=== PATIENT | male | born 1990 | race Two or more races ===

== ENCOUNTER 2025-04-17 08:28 | Emergency (ER) | payer OTHER ==
[~2025-04-17] VITALS: Ht 172.7 cm; Wt 77.3 kg
[2025-04-17] MEDS: ONDANSETRON 4MG/2ML VIAL IV ONE (09:33)
[2025-04-17] MEDS ORDERED: ISOVUE-370 76% 100 ML VIAL As Ordered ONE (10:16)
[2025-04-17] MEDS: PERCOCET 5MG/325MG TAB PO ONE (13:27)
[2025-04-17] MEDS: LORazepam 1 MG TAB PO ONE (13:34)
[2025-04-17] MEDS ORDERED: PROHANCE 279.3MG/ML 15ML VIAL As Ordered ONE (14:36)
[2025-04-17] MEDS ORDERED: HOME MED LIST COMPLETE! XX SCH (15:05)
[2025-04-17] MEDS ORDERED: OXYC1TAB23 PO (16:33)
[2025-04-17 16:57] VITALS: BP 117/57; TEMP 98.6; O2SAT 99
== END 2025-04-17 17:01 | disposition home or self-care (01) ==
LOC: M ED 08:28 → EDBD 08:28 → M ED 17:01
DX: S42.112A Displaced fracture of body of scapula, left shoulder, initial encounter for closed fracture (principal); W19.XXXA Unspecified fall, initial encounter; Y92.89 Other specified places as the place of occurrence of the external cause; Y93.39 Activity, other involving climbing, rappelling and jumping off; Y99.1 Military activity; D32.9 Benign neoplasm of meninges, unspecified
CPT/HCPCS: 70450; 70544; 70553; 71260; 72125; 80047; 96374; 96375; 96376; 99285; A9576; J2405; J3010; Q9967

== ENCOUNTER 2025-04-19 17:49 | Emergency (ER) | payer OTHER ==
[~2025-04-19] VITALS: Ht 172.7 cm; Wt 77.8 kg
[~2025-04-19 17:49] MED LIST: OXYC1TAB23 PO
[2025-04-19 18:46] LABS: PLATELET COUNT, AUTOMATED 411 10^3/uL (150-450)
[2025-04-19] MEDS: MORPHINE 4 MG/ML 1 ML VIAL IV ONE (19:00)
[2025-04-19] MEDS: ONDANSETRON 4MG/2ML VIAL IV ONE (19:00)
[2025-04-19 19:11] LABS: CALCIUM LEVEL 9.5 MG/DL (8.5-10.1); CARBON DIOXIDE LEVEL 27 MMOL/L (20-31); CHLORIDE LEVEL 99 MMOL/L (98-107); CREATININE FOR GFR 1.03 MG/DL (0.70-1.30); GLOMERULAR FILTRATION RATE > 90.0 (>60); POTASSIUM SERUM 4.1 MMOL/L (3.5-5.1); SODIUM LEVEL 138 MMOL/L (136-145)
[2025-04-19] MEDS: KETOROLAC 30 MG/ML 1 ML VIAL IV ONE (19:36)
[2025-04-19 20:06] VITALS: BP 123/79; TEMP 99.5; O2SAT 96
== END 2025-04-19 20:16 | disposition home or self-care (01) ==
LOC: EDBD 17:49 → M ED 17:49 → CANBEDREQ 19:02 → M ED 20:16
DX: S42.022S Displaced fracture of shaft of left clavicle, sequela (principal); W19.XXXA Unspecified fall, initial encounter; Y92.89 Other specified places as the place of occurrence of the external cause; Y93.A5 Activity, obstacle course; Y99.1 Military activity
CPT/HCPCS: 73200; 80048; 85027; 96374; 96375; 99284; J1885; J2405

== ENCOUNTER 2025-04-22 02:38 | Emergency (ER) | payer OTHER ==
[~2025-04-22] VITALS: Ht 177.8 cm; Wt 77.2 kg
[2025-04-22 05:22] VITALS: BP 121/60; TEMP 98; O2SAT 100
[2025-04-22 05:22] LABS: BASO # 0.1 10^3/uL (0.0-0.2); BASO % 0.5 % (0.0-1.0); EOS # 0.1 10^3/uL (0.0-0.5); EOS % 1.0 % (0.0-3.0); LYMPH # 2.1 10^3/uL (1.5-5.0); LYMPH % 22.6 % (24.0-44.0); MONO # 0.3 10^3/uL (0.0-0.8); MONO % 3.6 % (2.0-8.0); NEUTROPHILS # 6.7 10^3/uL (1.5-8.5); NEUTROPHILS % 72.1 % (36.0-66.0); PLATELET COUNT, AUTOMATED 365 10^3/uL (150-450)
[2025-04-22 05:51] LABS: ALT/SGPT 170.0 U/L (7.0-40); AST/SGOT 74.0 U/L (<34); CALCIUM LEVEL 9.8 MG/DL (8.5-10.1); CARBON DIOXIDE LEVEL 28.0 MMOL/L (20-31); CHLORIDE LEVEL 100.0 MMOL/L (98-107); CREATININE FOR GFR 1.2 MG/DL (0.70-1.30); GLOMERULAR FILTRATION RATE 79.9 (>60); POTASSIUM SERUM 5.1 MMOL/L (3.5-5.1); SODIUM LEVEL 137.0 MMOL/L (136-145)
[2025-04-22] MEDS ORDERED: MORPHINE 2 MG/ML 1 ML VIAL IV PRN (07:05)
[2025-04-22] MEDS ORDERED: FAMOTIDINE 20 MG/2 ML VIAL IVP ONE (07:05)
[2025-04-22] MEDS ORDERED: NS (Normal Saline) 0.9% 1,000 ML IV ONE (07:05)
[2025-04-22] MEDS ORDERED: ONDANSETRON 4MG/2ML VIAL IV ONE (07:05)
[2025-04-22] MEDS ORDERED: ISOVUE-370 76% 100 ML VIAL As Ordered ONE (07:16)
== END 2025-04-22 07:40 | disposition left against medical advice (07) ==
LOC: M ED 02:38
DX: R10.84 Generalized abdominal pain (principal); Z53.9 Procedure and treatment not carried out, unspecified reason